=== PATIENT | male | born 1945 | race Caucasian/White ===

== ENCOUNTER 2016-10-29 15:32 | Inpatient (IN) | payer OTHER ==
[~2016-10-29] VITALS: Ht 165.1 cm; Wt 51.8 kg
[2016-10-29] MEDS ORDERED: ERYTHROMYC1 APPLICAT RIGHT EYE (17:13)
[2016-10-29 18:03] LABS: HEMATOCRIT 37.8 % (38.0-50.0); MCH 32.8 PG (29.0-34.0); MCHC 33.9 G/DL (30.0-36.0); MCV 96.9 FL (86-99); MEAN PLAT.VOLUME 8.6 uM^3 (9.0-12.4); PLATELET COUNT 168 K/uL (156-360); RBC DIS.WIDTH-CV 13.4 % (11.8-14.6); RBC DIS.WIDTH-SD 45.2 % (39-53); WHITE BLOOD COUNT 3.6 K/uL (4.1-10.2)
[2016-10-29 18:14] LABS: CHLORIDE 107 mEq/L (99-109); SODIUM 140 mEq/L (136-147)
[2016-10-29 18:15] LABS: GLUCOSE 95 mg/dL (70-99)
[2016-10-29 18:17] LABS: ANION GAP 11 MEQ/L (2-14)
[2016-10-29 18:19] LABS: GFR ESTIMATE (CALCULATED) > 59 mL/min/
[2016-10-29 18:20] LABS: UREA NITROGEN (BUN) 16 mg/dL (9-23)
[2016-10-29 18:22] LABS: CREATINE KINASE 99 IU/L (1-294); TOTAL CK 99 IU/L (1-294)
[2016-10-29 18:27] LABS: TROP-I INTERPRETATION NEGATIVE; TROPONIN-I < 0.01 ng/mL (0.0-0.30)
[2016-10-29 18:28] LABS: CK-MB 3.2 ng/mL (0.0-4.9)
[2016-10-29 18:31] LABS: INTER. NORMALIZED RATIO 1.1; PROTHROMBIN TIME 11.1 (9.2-11.2)
[2016-10-30 06:58] LABS: ALKALINE PHOSPHATASE 47 IU/L (3-129); ANION GAP 7 MEQ/L (2-14); CHLORIDE 106 MEQ/L (99-109); DIRECT BILIRUBIN 0.1 mg/dL (0.0-0.3); GFR ESTIMATE (CALCULATED) > 59 mL/min/; GLUCOSE 87 mg/dL (70-99); POTASSIUM 3.9 MEQ/L (3.7-5.4); SAMPLE HEMOLYSIS CHECK 0; SAMPLE ICTERIC CHECK 0; SAMPLE LIPEMIA CHECK 0; SODIUM 141 MEQ/L (136-147); TOTAL BILIRUBIN 0.5 MG/DL (0.0-1.0); UREA NITROGEN (BUN) 12 mg/dL (9-23)
[2016-10-30 07:58] VITALS: BP 116/61
[2016-10-30 11:41] VITALS: BP 101/54
[2016-10-30 15:26] VITALS: BP 123/76
[2016-10-30 16:46] LABS: POINT-OF-CARE METER ID UU13113807
[2016-10-30 19:15] VITALS: BP 113/80
[2016-10-30 20:07] LABS: Estimated Average Glucose 103 mg/dL (70-123); HEMOGLOBIN A1c (GLYCOHEMOGLOB) 5.2 % HGB (Below 5.7)
[2016-10-30 21:36] LABS: POINT-OF-CARE METER ID UU13113807
[2016-10-30 23:05] VITALS: BP 124/59
[2016-10-31] VITALS (7 sets, daily range): BP systolic 89–137; BP diastolic 54–86
[2016-10-31 06:16] LABS: EOSINOPHIL (%) 0.6 % (0-5); HEMATOCRIT 38.6 % (38.0-50.0); IMMATURE GRANULOCYTE (%) 0.2 % (0.0-0.7); LYMPHOCYTE COUNT 0.6 K/uL (1.0-2.8); MCH 32.6 PG (29.0-34.0); MCHC 33.7 G/DL (30.0-36.0); MCV 96.7 FL (86-99); MEAN PLAT.VOLUME 9.5 uM^3 (9.0-12.4); MONOCYTE COUNT 0.6 K/uL (0-0.8); NEUTROPHIL (%) 74.6 % (45-76); NEUTROPHIL COUNT 3.5 K/uL (1.8-6.4); PLATELET COUNT 151 K/uL (156-360); RBC DIS.WIDTH-CV 13.4 % (11.8-14.6); RBC DIS.WIDTH-SD 46.7 % (39-53); RED BLOOD COUNT 3.99 M/uL (4.00-5.50)
[2016-10-31 06:32] LABS: WHITE BLOOD COUNT 4.7 K/uL (4.1-10.2)
[2016-10-31 06:41] LABS: ANION GAP 9 MEQ/L (2-14); CHLORIDE 105 MEQ/L (99-109); GFR ESTIMATE (CALCULATED) > 59 mL/min/; GLUCOSE 92 mg/dL (70-99); POTASSIUM 3.8 MEQ/L (3.7-5.4); SAMPLE HEMOLYSIS CHECK 0; SAMPLE ICTERIC CHECK 0; SAMPLE LIPEMIA CHECK 0; SODIUM 139 MEQ/L (136-147); UREA NITROGEN (BUN) 15 mg/dL (9-23)
[2016-10-31 12:14] LABS: POINT-OF-CARE METER ID UU13113807; POINT-OF-CARE USER ID 606021404
[2016-10-31 17:17] LABS: POINT-OF-CARE METER ID UU13113807; POINT-OF-CARE USER ID 606021404
[2016-11-01 00:02] LABS: POINT-OF-CARE METER ID UU14149398
[2016-11-01 03:25] VITALS: BP 113/56
[2016-11-01 08:00] VITALS: BP 108/68
[2016-11-01] MEDS ORDERED: DONEPEZIL HCL10 MG PO (08:34)
[2016-11-01 11:10] VITALS: BP 126/69
[2016-11-01 11:32] LABS: POINT-OF-CARE METER ID UU14149398
== END 2016-11-01 13:13 | disposition home health service (06) | DRG 65 ==
LOC: EME 15:32 → EXP 15:32 → 4SOUTH 19:50 → EDOF 19:50 → 4SOUTH 10-30 11:26
PROVIDERS: Emergency Medicine; Family Medicine; Internal Medicine
DX: I60.9 Nontraumatic subarachnoid hemorrhage, unspecified (principal); E11.9 Type 2 diabetes mellitus without complications; S05.02XA Injury of conjunctiva and corneal abrasion without foreign body, left eye, initial encounter; R26.9 Unspecified abnormalities of gait and mobility; F03.90 Unspecified dementia, unspecified severity, without behavioral disturbance, psychotic disturbance, mood disturbance, and anxiety; G89.29 Other chronic pain; H11.32 Conjunctival hemorrhage, left eye; R44.3 Hallucinations, unspecified; K21.9 Gastro-esophageal reflux disease without esophagitis; R53.1 Weakness; Z86.2 Personal history of diseases of the blood and blood-forming organs and certain disorders involving the immune mechanism; Y92.9 Unspecified place or not applicable
CPT/HCPCS: 70450; 70551; 80048; 80076; 82140; 82550; 82553; 82607; 82746; 82948; 83036; 84443; 84484; 85025; 85027; 85610; 97530 GO; 97530 GP; 99281; 99285; J1815; J7030

== ENCOUNTER → 2016-12-09 | Outpatient (CLI) | payer OTHER ==
[~2016-12-09] MED LIST: DONEPEZIL HCL10 MG PO; ERYTHROMYC1 APPLICAT RIGHT EYE
[2016-12-09 11:53] LABS: BASE EXCESS 3.6 mEq/L (-3 to +3); BICARBONATE 28.5 mEq/L (22-26); CARBOXY HGB 1.9 % (0-5); COMMENTS - BLOOD GASES A+C+; METHEMOGLOBIN 0.8 % (0-1.5); PCO2 43 mm Hg (35-45); PO2 88 mm Hg (80-100); SITE RR; TOTAL RESP RATE 15 resp/min; pH 7.43 (7.35-7.45)
== END | disposition home or self-care (01) ==
LOC: RES 11:13
PROVIDERS: Internal Medicine
DX: S09.90XS Unspecified injury of head, sequela (principal); R44.1 Visual hallucinations; F22 Delusional disorders
CPT/HCPCS: 36600; 82803

== ENCOUNTER 2017-03-04 09:42 | Emergency (ER) | payer OTHER ==
[~2017-03-04] VITALS: Ht 177.8 cm; Wt 52.5 kg
[2017-03-04 11:16] LABS: EOSINOPHIL (%) 0.5 % (0-5); HEMATOCRIT 38.1 % (38.0-50.0); IMMATURE GRANULOCYTE (%) 0.2 % (0.0-0.7); INSTRUMENT ABS NEUTROPHIL CT 2.8 K/uL; LYMPHOCYTE COUNT 0.7 K/uL (1.0-2.8); MCH 31.9 PG (29.0-34.0); MCHC 33.6 G/DL (30.0-36.0); MEAN PLAT.VOLUME 8.7 uM^3 (9.0-12.4); MONOCYTE (%) 16.4 % (3-12); MONOCYTE COUNT 0.7 K/uL (0-0.8); NEUTROPHIL COUNT 2.8 K/uL (1.8-6.4); PLATELET COUNT 196 K/uL (156-360); RBC DIS.WIDTH-CV 12.4 % (11.8-14.6); RBC DIS.WIDTH-SD 43.3 % (39-53); RED BLOOD COUNT 4.01 M/uL (4.00-5.50); WHITE BLOOD COUNT 4.1 K/uL (4.1-10.2)
[2017-03-04 11:28] LABS: CHLORIDE 105 mEq/L (99-109); POTASSIUM 4.4 mEq/L (3.7-5.4); SODIUM 138 mEq/L (136-147)
[2017-03-04 11:30] LABS: GLUCOSE 93 mg/dL (70-99)
[2017-03-04 11:31] LABS: ANION GAP 7 MEQ/L (2-14)
[2017-03-04 11:32] LABS: TOTAL BILIRUBIN 0.5 mg/dL (0.0-1.0)
[2017-03-04 11:34] LABS: ALKALINE PHOSPHATASE 40 IU/L (3-129); GFR ESTIMATE (CALCULATED) > 59 mL/min/
[2017-03-04 11:35] LABS: UREA NITROGEN (BUN) 26 mg/dL (9-23)
[2017-03-04 11:40] LABS: ADD MIUA? YES; BILIRUBIN NEGATIVE; BLOOD NEGATIVE; COLOR YELLOW ((YELLOW)); GLUCOSE (STRIP) NEGATIVE; KETONES NEGATIVE; LEUKOCYTES SMALL; NITRITE NEGATIVE; PROTEIN (STRIP) NEGATIVE; SPECIFIC GRAVITY 1.021 (1.000-1.030); UROBILINOGEN 0.2 MG/DL (0.2-1.0)
[2017-03-04 11:49] LABS: BACTERIA 3+ /HPF; EPITHELIAL CELLS NONE SEEN /HPF; MUCUS NONE SEEN /LPF; RED BLOOD CELLS 0-5 /HPF (0-5); UCUL ADDED? YES
[2017-03-04] MEDS ORDERED: ARICEPT10 MG PO (13:20)
[2017-03-04] MEDS ORDERED: LEVAQUIN250 MG PO (13:20)
[2017-03-04 13:55] VITALS: BP 123/65
== END 2017-03-04 13:56 | disposition home or self-care (01) ==
LOC: EME 09:42
PROVIDERS: Emergency Medicine
DX: N39.0 Urinary tract infection, site not specified (principal); F03.90 Unspecified dementia, unspecified severity, without behavioral disturbance, psychotic disturbance, mood disturbance, and anxiety
CPT/HCPCS: 70450; 80053; 81003; 84443; 85025; 87077; 87086; 87186; 90839; 99281; 99285

== ENCOUNTER 2017-03-10 12:10 | Inpatient (IN) | payer OTHER ==
[~2017-03-10] VITALS: Ht 188 cm; Wt 57.1 kg
[~2017-03-10 12:10] MED LIST changes: +ARICEPT10 MG PO; +LEVAQUIN250 MG PO
[2017-03-10 12:49] LABS: EOSINOPHIL (%) 0 % (0-5); HEMATOCRIT 38.6 % (38.0-50.0); IMMATURE GRANULOCYTE (%) 1.1 % (0.0-0.7); IMMATURE GRANULOCYTE COUNT 0.2 K/uL; INSTRUMENT ABS NEUTROPHIL CT 14.8 K/uL; LYMPHOCYTE COUNT 0.3 K/uL (1.0-2.8); MCH 32.1 PG (29.0-34.0); MCHC 34.7 G/DL (30.0-36.0); MCV 92.6 FL (86-99); MEAN PLAT.VOLUME 8.7 uM^3 (9.0-12.4); MONOCYTE (%) 4.6 % (3-12); MONOCYTE COUNT 0.7 K/uL (0-0.8); NEUTROPHIL (%) 92.4 % (45-76); NEUTROPHIL COUNT 14.8 K/uL (1.8-6.4); PLATELET COUNT 181 K/uL (156-360); RBC DIS.WIDTH-CV 12.6 % (11.8-14.6); RBC DIS.WIDTH-SD 42.7 % (39-53); RED BLOOD COUNT 4.17 M/uL (4.00-5.50); WHITE BLOOD COUNT 16.1 K/uL (4.1-10.2)
[2017-03-10 12:53] LABS: CHLORIDE 106 mEq/L (99-109); POTASSIUM 3.6 mEq/L (3.7-5.4); SODIUM 142 mEq/L (136-147)
[2017-03-10 12:54] LABS: MAGNESIUM 2.5 mg/dL (1.3-2.7)
[2017-03-10 12:55] LABS: GLUCOSE 126 mg/dL (70-99)
[2017-03-10 12:57] LABS: ANION GAP 18 MEQ/L (2-14)
[2017-03-10 12:59] LABS: GFR ESTIMATE (CALCULATED) > 59 mL/min/; INTER. NORMALIZED RATIO 1.1; PROTHROMBIN TIME 11.7 (9.2-11.2); PTT 25.9 (25-32)
[2017-03-10 13:00] LABS: UREA NITROGEN (BUN) 18 mg/dL (9-23)
[2017-03-10 13:04] LABS: TROP-I INTERPRETATION NEGATIVE; TROPONIN-I < 0.01 ng/mL (0.0-0.30)
[2017-03-10 13:48] LABS: ALKALINE PHOSPHATASE 47 IU/L (3-129)
[2017-03-10 13:50] LABS: DIRECT BILIRUBIN 0.1 mg/dL (0.0-0.3)
[2017-03-10 13:52] LABS: SALICYLATE 63.9 MG/DL (15-30); TOTAL BILIRUBIN 0.2 mg/dL (0.0-1.0)
[2017-03-10 14:51] LABS: SERUM ETHYL ALCOHOL < 10 mg/dL
[2017-03-10 14:58] LABS: ADD MIUA? YES; BILIRUBIN NEGATIVE; BLOOD SMALL; COLOR YELLOW ((YELLOW)); GLUCOSE (STRIP) NEGATIVE; KETONES 20; LEUKOCYTES NEGATIVE; NITRITE NEGATIVE; PROTEIN (STRIP) 30; SPECIFIC GRAVITY 1.017 (1.000-1.030); UROBILINOGEN 0.2 MG/DL (0.2-1.0)
[2017-03-10 15:15] LABS: BASE EXCESS -3.3 mEq/L (-3 to +3); BICARBONATE 20.1 mEq/L (22-26); CARBOXY HGB 1.6 % (0-5); COMMENTS - BLOOD GASES C+; DEVICE ROOM AIR; FI02 21 %; METHEMOGLOBIN 1.5 % (0-1.5); PCO2 31 mm Hg (35-45); PO2 65 mm Hg (80-100); SITE RB; TOTAL RESP RATE 26 resp/min; pH 7.42 (7.35-7.45)
[2017-03-10 15:21] LABS: AMPHETAMINE NEGATIVE (500 ng/mL); BARBITURATES NEGATIVE (200 ng/mL); BENZODIAZEPINES NEGATIVE (150 ng/mL); COCAINE NEGATIVE (150 ng/mL); INTERNAL CONTROLS VALID? YES; METHADONE NEGATIVE (200 ng/mL); METHAMPHETAMINE NEGATIVE (500 ng/mL); OPIATES (MORPHINE) NEGATIVE (100 ng/mL); OXYCODONE NEGATIVE (100 ng/mL); PHENCYCLIDINE NEGATIVE (25 ng/mL); PROPOXYPHENE NEGATIVE (300 ng/mL); THC CANNABINOIDS NEGATIVE (50 ng/mL); TRICYCLIC ANTIDEPRESSANTS NEGATIVE (300 ng/mL)
[2017-03-10] MEDS ORDERED: ASPIRIN325 MG PO (15:25)
[2017-03-10 15:27] LABS: BACTERIA RARE /HPF; EPITHELIAL CELLS NONE SEEN /HPF; MUCUS TRACE /LPF; RED BLOOD CELLS 0-5 /HPF (0-5); UCUL ADDED? NO; WHITE BLOOD CELLS 0-5 /HPF (0-5)
[2017-03-10] MEDS ORDERED: LEVOFLOXACIN500 MG PO (15:42)
[2017-03-10 15:49] LABS: CARBON DIOXIDE (BICARBONATE) 34.9 MEQ/L (20-31)
[2017-03-10 17:35] LABS: CARBON DIOXIDE (BICARBONATE) 22.5 MEQ/L (20-31)
[2017-03-10 19:02] LABS: CARBON DIOXIDE (BICARBONATE) 21.7 MEQ/L (20-31)
[2017-03-10 22:30] LABS: CARBON DIOXIDE (BICARBONATE) 24.6 MEQ/L (20-31)
[2017-03-11] VITALS (25 sets, daily range): BP systolic 91–148; BP diastolic 49–80
[2017-03-11 00:17] LABS: CHLORIDE 101 mEq/L (99-109); POTASSIUM 2.5 mEq/L (3.7-5.4); SODIUM 141 mEq/L (136-147)
[2017-03-11 00:20] LABS: ANION GAP 20 MEQ/L (2-14)
[2017-03-11 00:23] LABS: UREA NITROGEN (BUN) 17 mg/dL (9-23)
[2017-03-11 00:30] LABS: GFR ESTIMATE (CALCULATED) 53 mL/min/; GLUCOSE 218 mg/dL (70-99)
[2017-03-11 01:16] LABS: ADD MIUA? YES; BILIRUBIN NEGATIVE; BLOOD LARGE; COLOR YELLOW ((YELLOW)); GLUCOSE (STRIP) 50; KETONES 20; LEUKOCYTES NEGATIVE; NITRITE NEGATIVE; PROTEIN (STRIP) NEGATIVE; SPECIFIC GRAVITY 1.014 (1.000-1.030); UROBILINOGEN 0.2 MG/DL (0.2-1.0)
[2017-03-11 01:43] LABS: METH RESISTANT S AUREUS PCR NEGATIVE (NEGATIVE)
[2017-03-11 01:45] LABS: PROBE CHECK PASS; SPECIMEN PROCESSING CONTROL PASS
[2017-03-11 02:06] LABS: RED BLOOD CELLS 30-40 /HPF (0-5); WHITE BLOOD CELLS 0-5 /HPF (0-5)
[2017-03-11 02:07] LABS: BACTERIA 2+ /HPF; EPITHELIAL CELLS 1+ /HPF; MUCUS NONE SEEN /LPF
[2017-03-11 05:47] LABS: CHLORIDE 100 mEq/L (99-109); SODIUM 139 mEq/L (136-147)
[2017-03-11 05:48] LABS: GLUCOSE 133 mg/dL (70-99)
[2017-03-11 05:50] LABS: ANION GAP 18 MEQ/L (2-14)
[2017-03-11 05:52] LABS: GFR ESTIMATE (CALCULATED) > 59 mL/min/
[2017-03-11 05:53] LABS: UREA NITROGEN (BUN) 15 mg/dL (9-23)
[2017-03-11 06:15] LABS: POTASSIUM 3.1 mEq/L (3.7-5.4)
[2017-03-11 08:57] LABS: ANION GAP 13 MEQ/L (2-14); CHLORIDE 104 MEQ/L (99-109); GFR ESTIMATE (CALCULATED) > 59 mL/min/; GLUCOSE 133 mg/dL (70-99); POTASSIUM 2.8 MEQ/L (3.7-5.4); SAMPLE HEMOLYSIS CHECK 0; SAMPLE ICTERIC CHECK 0; SAMPLE LIPEMIA CHECK 0; SODIUM 142 MEQ/L (136-147); UREA NITROGEN (BUN) 16 mg/dL (9-23)
[2017-03-11 13:10] LABS: ANION GAP 10 MEQ/L (2-14); CHLORIDE 107 MEQ/L (99-109); POTASSIUM 2.8 MEQ/L (3.7-5.4); SAMPLE HEMOLYSIS CHECK 0; SAMPLE ICTERIC CHECK 0; SAMPLE LIPEMIA CHECK 0; SODIUM 141 MEQ/L (136-147)
[2017-03-11 13:15] LABS: GFR ESTIMATE (CALCULATED) > 59 mL/min/; GLUCOSE 109 mg/dL (70-99); UREA NITROGEN (BUN) 16 mg/dL (9-23)
[2017-03-11 14:12] LABS: BASE EXCESS 3.2 mEq/L (-3 to +3); BICARBONATE 24.5 mEq/L (22-26); CARBOXY HGB 1.9 % (0-5); COMMENTS - BLOOD GASES C+; DEVICE ROOM AIR; FI02 21 %; METHEMOGLOBIN 1.8 % (0-1.5); PCO2 28 mm Hg (35-45); PO2 74 mm Hg (80-100); SITE RB; pH 7.55 (7.35-7.45)
[2017-03-11 14:13] LABS: TOTAL RESP RATE 28 resp/min
[2017-03-11 14:27] LABS: INTER. NORMALIZED RATIO 1.4; PROTHROMBIN TIME 14.9 (9.2-11.2)
[2017-03-11 17:36] LABS: ANION GAP 8 MEQ/L (2-14); CHLORIDE 108 MEQ/L (99-109); GFR ESTIMATE (CALCULATED) > 59 mL/min/; GLUCOSE 95 mg/dL (70-99); SAMPLE HEMOLYSIS CHECK 0; SAMPLE ICTERIC CHECK 0; SAMPLE LIPEMIA CHECK 0; SODIUM 141 MEQ/L (136-147); UREA NITROGEN (BUN) 16 mg/dL (9-23)
[2017-03-11 17:40] LABS: POTASSIUM 3.4 MEQ/L (3.7-5.4)
[2017-03-11 19:08] LABS: ALKALINE PHOSPHATASE 42 IU/L (3-129); TOTAL BILIRUBIN 0.3 MG/DL (0.0-1.0)
[2017-03-11 20:36] LABS: ANION GAP 10 MEQ/L (2-14); CHLORIDE 109 MEQ/L (99-109); POTASSIUM 3.4 MEQ/L (3.7-5.4); SAMPLE HEMOLYSIS CHECK 0; SAMPLE ICTERIC CHECK 0; SAMPLE LIPEMIA CHECK 0; SODIUM 143 MEQ/L (136-147)
[2017-03-11 20:42] LABS: GFR ESTIMATE (CALCULATED) > 59 mL/min/; GLUCOSE 87 mg/dL (70-99); UREA NITROGEN (BUN) 17 mg/dL (9-23)
[2017-03-11 20:57] LABS: SALICYLATE 33.7 MG/DL (15-30)
[2017-03-11 22:12] LABS: CARBON DIOXIDE (BICARBONATE) 29.5 MEQ/L (20-31)
[2017-03-12] VITALS (17 sets, daily range): BP systolic 72–157; BP diastolic 36–81
[2017-03-12 06:56] LABS: ANION GAP 10 MEQ/L (2-14); CHLORIDE 112 MEQ/L (99-109); GFR ESTIMATE (CALCULATED) > 59 mL/min/; GLUCOSE 77 mg/dL (70-99); POTASSIUM 3.8 MEQ/L (3.7-5.4); SAMPLE HEMOLYSIS CHECK 0; SAMPLE ICTERIC CHECK 0; SAMPLE LIPEMIA CHECK 0; SODIUM 144 MEQ/L (136-147); UREA NITROGEN (BUN) 22 mg/dL (9-23)
[2017-03-12 07:23] LABS: MCH 33.1 PG (29.0-34.0); MCHC 35.3 G/DL (30.0-36.0); MCV 93.9 FL (86-99); MEAN PLAT.VOLUME 9.3 uM^3 (9.0-12.4); PLATELET COUNT 151 K/uL (156-360); RBC DIS.WIDTH-CV 13.4 % (11.8-14.6); RBC DIS.WIDTH-SD 46.6 % (39-53); RED BLOOD COUNT 3.62 M/uL (4.00-5.50); WHITE BLOOD COUNT 8.5 K/uL (4.1-10.2)
[2017-03-12 13:18] LABS: ADD MIUA? YES; BILIRUBIN NEGATIVE; BLOOD LARGE; COLOR YELLOW ((YELLOW)); GLUCOSE (STRIP) 50; KETONES 80; LEUKOCYTES NEGATIVE; NITRITE NEGATIVE; PROTEIN (STRIP) 100; SPECIFIC GRAVITY 1.023 (1.000-1.030); UROBILINOGEN 0.2 MG/DL (0.2-1.0)
[2017-03-12 14:34] LABS: SALICYLATE 19.3 MG/DL (15-30)
[2017-03-12 14:36] LABS: BACTERIA NONE SEEN /HPF; EPITHELIAL CELLS NONE SEEN /HPF; MUCUS TRACE /LPF; RED BLOOD CELLS TNTC /HPF (0-5)
[2017-03-13] VITALS (10 sets, daily range): BP systolic 105–139; BP diastolic 53–75
[2017-03-13 06:11] LABS: EOSINOPHIL (%) 0.2 % (0-5); HEMATOCRIT 31.9 % (38.0-50.0); IMMATURE GRANULOCYTE (%) 0.7 % (0.0-0.7); INSTRUMENT ABS NEUTROPHIL CT 4.5 K/uL; LYMPHOCYTE COUNT 0.6 K/uL (1.0-2.8); MCH 33.1 PG (29.0-34.0); MCHC 35.1 G/DL (30.0-36.0); MCV 94.4 FL (86-99); MONOCYTE (%) 7.7 % (3-12); MONOCYTE COUNT 0.4 K/uL (0-0.8); NEUTROPHIL (%) 80.8 % (45-76); NEUTROPHIL COUNT 4.5 K/uL (1.8-6.4); PLATELET COUNT 144 K/uL (156-360); RBC DIS.WIDTH-CV 13.4 % (11.8-14.6); RBC DIS.WIDTH-SD 45.9 % (39-53); RED BLOOD COUNT 3.38 M/uL (4.00-5.50); WHITE BLOOD COUNT 5.6 K/uL (4.1-10.2)
[2017-03-13 06:43] LABS: ALKALINE PHOSPHATASE 41 IU/L (3-129); ANION GAP 7 MEQ/L (2-14); CHLORIDE 111 MEQ/L (99-109); GFR ESTIMATE (CALCULATED) > 59 mL/min/; GLUCOSE 85 mg/dL (70-99); MAGNESIUM 2.1 mg/dl (1.3-2.7); POTASSIUM 3.4 MEQ/L (3.7-5.4); SAMPLE HEMOLYSIS CHECK 0; SAMPLE ICTERIC CHECK 0; SAMPLE LIPEMIA CHECK 0; SODIUM 141 MEQ/L (136-147); UREA NITROGEN (BUN) 18 mg/dL (9-23)
[2017-03-13 06:45] LABS: TOTAL BILIRUBIN 0.4 MG/DL (0.0-1.0)
[2017-03-14] VITALS (9 sets, daily range): BP systolic 101–135; BP diastolic 47–74
[2017-03-14 06:44] LABS: EOSINOPHIL (%) 0.9 % (0-5); IMMATURE GRANULOCYTE (%) 0.9 % (0.0-0.7); INSTRUMENT ABS NEUTROPHIL CT 2.2 K/uL; LYMPHOCYTE COUNT 0.7 K/uL (1.0-2.8); MCH 31.9 PG (29.0-34.0); MCHC 33.8 G/DL (30.0-36.0); MCV 94.2 FL (86-99); MEAN PLAT.VOLUME 8.8 uM^3 (9.0-12.4); MONOCYTE (%) 11.5 % (3-12); MONOCYTE COUNT 0.4 K/uL (0-0.8); NEUTROPHIL (%) 64.9 % (45-76); NEUTROPHIL COUNT 2.2 K/uL (1.8-6.4); PLATELET COUNT 139 K/uL (156-360); RBC DIS.WIDTH-CV 13.2 % (11.8-14.6); RBC DIS.WIDTH-SD 45.7 % (39-53); RED BLOOD COUNT 3.61 M/uL (4.00-5.50); WHITE BLOOD COUNT 3.4 K/uL (4.1-10.2)
[2017-03-14 06:51] LABS: Estimated Average Glucose 114 mg/dL (70-123); HEMOGLOBIN A1c (GLYCOHEMOGLOB) 5.6 % HGB (Below 5.7)
[2017-03-14 07:03] LABS: ANION GAP 7 MEQ/L (2-14); CHLORIDE 111 MEQ/L (99-109); GFR ESTIMATE (CALCULATED) > 59 mL/min/; GLUCOSE 87 mg/dL (70-99); POTASSIUM 3.3 MEQ/L (3.7-5.4); SAMPLE HEMOLYSIS CHECK 0; SAMPLE ICTERIC CHECK 0; SAMPLE LIPEMIA CHECK 0; SODIUM 145 MEQ/L (136-147); UREA NITROGEN (BUN) 11 mg/dL (9-23)
[2017-03-14 09:38] LABS: TREPONEMA ANTIBODY NEGATIVE (NEGATIVE)
[2017-03-15 03:35] VITALS: BP 126/68
[2017-03-15 06:18] LABS: EOSINOPHIL (%) 0.2 % (0-5); HEMATOCRIT 32.8 % (38.0-50.0); IMMATURE GRANULOCYTE (%) 0.4 % (0.0-0.7); INSTRUMENT ABS NEUTROPHIL CT 4.4 K/uL; LYMPHOCYTE COUNT 0.6 K/uL (1.0-2.8); MCH 33.3 PG (29.0-34.0); MCHC 35.1 G/DL (30.0-36.0); MCV 95.1 FL (86-99); MEAN PLAT.VOLUME 9.2 uM^3 (9.0-12.4); MONOCYTE (%) 7.8 % (3-12); MONOCYTE COUNT 0.4 K/uL (0-0.8); NEUTROPHIL COUNT 4.4 K/uL (1.8-6.4); PLATELET COUNT 149 K/uL (156-360); RBC DIS.WIDTH-CV 13.5 % (11.8-14.6); RBC DIS.WIDTH-SD 46.4 % (39-53); RED BLOOD COUNT 3.45 M/uL (4.00-5.50); WHITE BLOOD COUNT 5.5 K/uL (4.1-10.2)
[2017-03-15 06:28] LABS: ANION GAP 9 MEQ/L (2-14); CHLORIDE 107 MEQ/L (99-109); GFR ESTIMATE (CALCULATED) > 59 mL/min/; GLUCOSE 90 mg/dL (70-99); MAGNESIUM 2.2 mg/dl (1.3-2.7); POTASSIUM 3.7 MEQ/L (3.7-5.4); SAMPLE HEMOLYSIS CHECK 0; SAMPLE ICTERIC CHECK 0; SAMPLE LIPEMIA CHECK 0; SODIUM 142 MEQ/L (136-147); UREA NITROGEN (BUN) 14 mg/dL (9-23)
[2017-03-15 08:00] VITALS: BP 121/69
[2017-03-15 11:50] VITALS: BP 107/59
[2017-03-15 16:48] VITALS: BP 124/71
[2017-03-15 19:28] VITALS: BP 131/69
[2017-03-15 23:31] VITALS: BP 125/72
[2017-03-16 03:55] VITALS: BP 134/75
[2017-03-16 08:29] VITALS: BP 144/66
[2017-03-16 12:12] VITALS: BP 114/57
[2017-03-16 15:10] VITALS: BP 136/60
[2017-03-16 23:53] VITALS: BP 129/62
[2017-03-17 08:15] VITALS: BP 105/63
[2017-03-17 15:46] VITALS: BP 112/57
[2017-03-17 23:55] VITALS: BP 111/61
[2017-03-18 07:25] VITALS: BP 106/61
[2017-03-18] MEDS ORDERED: FAMOTIDINE20 MG PO (12:57)
[2017-03-18] MEDS ORDERED: RISPERDAL2 MG PO (12:57)
[2017-03-18 15:17] VITALS: BP 108/57
[2017-03-18 23:40] VITALS: BP 104/61
[2017-03-19 07:21] VITALS: BP 117/58
[2017-03-19 15:35] VITALS: BP 105/63
== END 2017-03-19 17:10 | DRG 917 ==
LOC: EME 12:10 → EDOF 15:25 → 4WEST 15:25 → EDOF 20:12 → 4WEST 03-11 00:03 → 5SOUTH 03-14 14:11
PROVIDERS: Emergency Medicine; Hospitalist; Internal Medicine; Internal Medicine Critical Care Medicine; Internal Medicine Nephrology; Nurse Practitioner Adult Health
DX: T39.1X1A Poisoning by 4-Aminophenol derivatives, accidental (unintentional), initial encounter (principal); T39.011A Poisoning by aspirin, accidental (unintentional), initial encounter; G92 Toxic encephalopathy; R31.0 Gross hematuria; N17.9 Acute kidney failure, unspecified; N39.0 Urinary tract infection, site not specified; B96.1 Klebsiella pneumoniae [K. pneumoniae] as the cause of diseases classified elsewhere; R09.02 Hypoxemia; E87.6 Hypokalemia; R64 Cachexia; Z68.1 Body mass index [BMI] 19.9 or less, adult; D46.9 Myelodysplastic syndrome, unspecified; F01.50 Vascular dementia, unspecified severity, without behavioral disturbance, psychotic disturbance, mood disturbance, and anxiety; R44.1 Visual hallucinations; R32 Unspecified urinary incontinence; E11.9 Type 2 diabetes mellitus without complications; M25.561 Pain in right knee; M54.9 Dorsalgia, unspecified; M25.562 Pain in left knee; Z79.4 Long term (current) use of insulin; Z79.82 Long term (current) use of aspirin; Z80.1 Family history of malignant neoplasm of trachea, bronchus and lung; Z82.49 Family history of ischemic heart disease and other diseases of the circulatory system; Z91.81 History of falling; Z85.118 Personal history of other malignant neoplasm of bronchus and lung
CPT/HCPCS: 36600; 70450; 70551; 71010; 80048; 80048 91; 80053; 80076; 81003; 82607; 82746; 82803; 83036; 83605; 83735; 84100; 84439; 84443; 84450; 84460; 84481; 84484; 85025; 85027; 85610; 85730; 86780; 87086; 87641; 92526 GN; 92610 GN; 93005; 94799; 97530 GP; 99281; 99285; G0480; J0132; J1630; J2060; J3480; J7030; J7050; J7060; J7070; S0028

== ENCOUNTER 2017-05-24 18:11 | Emergency (ER) | payer OTHER ==
[~2017-05-24] VITALS: Ht 167.6 cm; Wt 52.1 kg
[~2017-05-24 18:11] MED LIST changes: +ASPIRIN325 MG PO; +FAMOTIDINE20 MG PO; +LEVOFLOXACIN500 MG PO; +RISPERDAL2 MG PO
[2017-05-24 19:34] LABS: EOSINOPHIL (%) 0.2 % (0-5); HEMATOCRIT 32.4 % (38.0-50.0); IMMATURE GRANULOCYTE (%) 0.6 % (0.0-0.7); IMMATURE GRANULOCYTE COUNT 0.1 K/uL; INSTRUMENT ABS NEUTROPHIL CT 10.4 K/uL; LYMPHOCYTE COUNT 1.2 K/uL (1.0-2.8); MCH 30.6 PG (29.0-34.0); MCHC 33.3 G/DL (30.0-36.0); MCV 91.8 FL (86-99); MEAN PLAT.VOLUME 8.4 uM^3 (9.0-12.4); MONOCYTE (%) 9.4 % (3-12); MONOCYTE COUNT 1.2 K/uL (0-0.8); NEUTROPHIL (%) 80.2 % (45-76); NEUTROPHIL COUNT 10.4 K/uL (1.8-6.4); PLATELET COUNT 215 K/uL (156-360); RBC DIS.WIDTH-CV 12.8 % (11.8-14.6); RBC DIS.WIDTH-SD 42.1 % (39-53); RED BLOOD COUNT 3.53 M/uL (4.00-5.50); WHITE BLOOD COUNT 12.9 K/uL (4.1-10.2)
[2017-05-24 19:47] LABS: CHLORIDE 104 mEq/L (99-109); POTASSIUM 3.6 mEq/L (3.7-5.4); SODIUM 140 mEq/L (136-147)
[2017-05-24 19:49] LABS: GLUCOSE 96 mg/dL (70-99)
[2017-05-24 19:50] LABS: ANION GAP 8 MEQ/L (2-14)
[2017-05-24 19:51] LABS: TOTAL BILIRUBIN 0.5 mg/dL (0.0-1.0)
[2017-05-24 19:52] LABS: ALKALINE PHOSPHATASE 52 IU/L (3-129)
[2017-05-24 19:53] LABS: GFR ESTIMATE (CALCULATED) > 59 mL/min/
[2017-05-24 19:54] LABS: UREA NITROGEN (BUN) 20 mg/dL (9-23)
[2017-05-24 21:30] LABS: ADD MIUA? YES; BILIRUBIN NEGATIVE; BLOOD MODERATE; COLOR YELLOW ((YELLOW)); GLUCOSE (STRIP) NEGATIVE; KETONES NEGATIVE; LEUKOCYTES TRACE; NITRITE POSITIVE; PROTEIN (STRIP) NEGATIVE; SPECIFIC GRAVITY 1.018 (1.000-1.030); UROBILINOGEN 0.2 MG/DL (0.2-1.0)
[2017-05-24 21:35] LABS: BACTERIA 2+ /HPF; EPITHELIAL CELLS NONE SEEN /HPF; MUCUS TRACE /LPF; RED BLOOD CELLS 0-5 /HPF (0-5); UCUL ADDED? YES
[2017-05-24] MEDS ORDERED: CIPRO500 MG PO (23:28)
[2017-05-25 01:39] VITALS: BP 101/55
== END 2017-05-25 02:34 ==
LOC: EME 18:11
PROVIDERS: Emergency Medicine
DX: S09.8XXA Other specified injuries of head, initial encounter (principal); S00.81XA Abrasion of other part of head, initial encounter; W05.0XXA Fall from non-moving wheelchair, initial encounter; Y92.129 Unspecified place in nursing home as the place of occurrence of the external cause; N39.0 Urinary tract infection, site not specified; E86.0 Dehydration; F03.90 Unspecified dementia, unspecified severity, without behavioral disturbance, psychotic disturbance, mood disturbance, and anxiety; Z79.82 Long term (current) use of aspirin
CPT/HCPCS: 70450; 71010; 72125; 80053; 81003; 83605; 85025; 87040; 87077; 87086; 87186; 99281; 99285; J0696; J7030; J7050

== ENCOUNTER 2017-06-05 10:32 | Emergency (ER) | payer OTHER ==
[~2017-06-05] VITALS: Ht 177.8 cm; Wt 52.7 kg
[~2017-06-05 10:32] MED LIST changes: +CIPRO500 MG PO
[2017-06-05 11:53] LABS: EOSINOPHIL (%) 0.7 % (0-5); EOSINOPHIL COUNT 0.1 K/uL (0-0.3); IMMATURE GRANULOCYTE COUNT 0.1 K/uL; INSTRUMENT ABS NEUTROPHIL CT 9.3 K/uL; LYMPHOCYTE COUNT 0.7 K/uL (1.0-2.8); MCH 29.2 PG (29.0-34.0); MCHC 31.8 G/DL (30.0-36.0); MCV 91.8 FL (86-99); MEAN PLAT.VOLUME 8.4 uM^3 (9.0-12.4); MONOCYTE (%) 7.9 % (3-12); MONOCYTE COUNT 0.9 K/uL (0-0.8); NEUTROPHIL (%) 84.1 % (45-76); NEUTROPHIL COUNT 9.3 K/uL (1.8-6.4); PLATELET COUNT 273 K/uL (156-360); RBC DIS.WIDTH-CV 12.9 % (11.8-14.6); RBC DIS.WIDTH-SD 43.4 % (39-53); RED BLOOD COUNT 4.25 M/uL (4.00-5.50)
[2017-06-05 12:02] LABS: CHLORIDE 103 mEq/L (99-109); POTASSIUM 4.6 mEq/L (3.7-5.4); SODIUM 142 mEq/L (136-147)
[2017-06-05 12:03] LABS: TROP-I INTERPRETATION NEGATIVE; TROPONIN-I < 0.01 ng/mL (0.0-0.30)
[2017-06-05 12:03] LABS: MAGNESIUM 2.5 mg/dL (1.3-2.7)
[2017-06-05 12:04] LABS: GLUCOSE 81 mg/dL (70-99)
[2017-06-05 12:05] LABS: ANION GAP 11 MEQ/L (2-14)
[2017-06-05 12:08] LABS: GFR ESTIMATE (CALCULATED) > 59 mL/min/
[2017-06-05 12:09] LABS: UREA NITROGEN (BUN) 23 mg/dL (9-23)
[2017-06-05 12:43] LABS: INTER. NORMALIZED RATIO 1.1; PROTHROMBIN TIME 12.4 SEC (10.2-12.9)
[2017-06-05 12:45] LABS: ADD MIUA? NO; BILIRUBIN NEGATIVE; BLOOD NEGATIVE; COLOR YELLOW ((YELLOW)); GLUCOSE (STRIP) NEGATIVE; KETONES NEGATIVE; LEUKOCYTES NEGATIVE; NITRITE NEGATIVE; PROTEIN (STRIP) 30; SPECIFIC GRAVITY 1.025 (1.000-1.030); UCUL ADDED? NO; UROBILINOGEN 0.2 MG/DL (0.2-1.0)
[2017-06-05 12:46] LABS: PTT 29.1 SEC (25-37)
[2017-06-05] MEDS ORDERED: CEFDINIR300 MG PO (15:54)
[2017-06-05 18:27] VITALS: BP 130/64
== END 2017-06-05 18:30 ==
LOC: EME 10:32
PROVIDERS: Emergency Medicine
DX: S00.83XA Contusion of other part of head, initial encounter (principal); J18.9 Pneumonia, unspecified organism; W05.0XXA Fall from non-moving wheelchair, initial encounter; Y92.129 Unspecified place in nursing home as the place of occurrence of the external cause; F03.90 Unspecified dementia, unspecified severity, without behavioral disturbance, psychotic disturbance, mood disturbance, and anxiety; E11.9 Type 2 diabetes mellitus without complications; Z87.440 Personal history of urinary (tract) infections; Z79.82 Long term (current) use of aspirin
CPT/HCPCS: 70450; 71010; 80048; 81003; 83605; 83735; 84484; 85025; 85610; 85730; 87040; 93005; 99281; 99284; J7030